=== PATIENT | male | born 1960 | race Caucasian/White ===

== ENCOUNTER 2020-01-22 08:19 | Day surgery (SDC) | payer OTHER, SELFPAY ==
[2020-01-15 10:45] VITALS: BMI 25.9
[2020-01-22 08:31] VITALS: BP 113/76; PULSE 69; RESP 16; TEMP 36; O2SAT 99
--- NOTE | 2020-01-22 08:42 | HO.ANESPROP2 ---
[facility] Past Medical History Medical History Asbestos exposure BPH (benign prostatic hyperplasia) Depression Erectile dysfunction Fatigue Gluten intolerance History of anxiety Physical exam RBBB Sleep apnea Family History Family History Father Cancer of prostate Mother No problems noted. Maternal Grandfather No problems noted. Maternal Grandmother No problems noted. Paternal Grandfather No problems noted. Paternal Grandmother Colon cancer Paternal Uncle Unknown family medical history Surgical History Surgical History H/O colonoscopy Hx of arthroscopic knee surgery Hx of right inguinal hernia repair Hx of vasectomy Social History Social History (Updated 01/15/20 @ 10:50 by Melissa Mirza) Alcohol intake: never Smoking Status: Never smoker Use of substances other than those prescribed or required for medical reasons: No Advance Directives Information Provided: No Recently lost weight without trying: No Meds Allergies Allergy/AdvReac Type Severity Reaction Status Date / Time No Known Allergies Allergy Verified 01/22/20 08:28 [No Known Allergies*] Home Medications Medication Instructions Recorded Confirmed Type cholecalciferol (vitamin D3) 50 50 mcg PO DAILY 01/07/20 01/22/20 History mcg (2,000 unit) capsule vitamin B complex 1 tab PO DAILY 01/07/20 01/22/20 History Exam Exam Date and Time: January 22, 2020 0842 Height,Weight and Vital Signs: Height 5 ft 7 in Weight 75 kg Last Vital Signs Temp 96.8 F 01/22/20 08:31 Pulse 69 01/22/20 08:31 Resp 16 01/22/20 08:31 BP 113/76 01/22/20 08:31 Pulse Ox 99 01/22/20 08:31 Airway Mallampati Class: III TM Dist: >3cm Neck ROM: Full Heart: RrR Lungs: CTA BL Assessment and Plan Assessment Anesthesia Assessment: Anesthesia Plan Discussed and Chart Reviewed Final Anesthetic Review NPO: Yes ASA Class: II Final Preanesthetic Review: Meds/Allgs Chart Reviewed and Consent Obtained/Reviewed Patient Risk: Intermediate Procedure Risk: Intermediate Anesthetic Plan Anesthetic Plan: MAC: Disposition: Standard PACU
[2020-01-22] MEDS: Lactated Ringers 1,000 ML 50 ML IVCONT (08:58)
--- NOTE | 2020-01-22 09:30 | MHC.SHP ---
Pre-Procedural Eval Section B Chief Complaint: SCREENING Details of Present Illness: Colon cancer screening, Hx of colon polyps; + colon cancer second degree relative Relevant Family History (Specify if Yes): Yes Relevant Social History: None Present Medications: see Short Stay Collaborative assessment Medical History: Significant History (CORINA-hernia, ) History of Previous Operations: No relevant previous surgery Allergies: Allergies Allergy/AdvReac Type Severity Reaction Status Date / Time No Known Allergies Allergy Verified 01/22/20 08:28 [No Known Allergies*] Review of Systems Sugical H&P ROS: Negative: Constitution, Cardiovascular, Respiratory, Gastrointestinal and Musculoskeletal Exam Surgical H&P Exam: Normal: HEENT, Normal: Heart, Normal: Lungs, Normal: Extremities, Normal: Abdomen and Normal: Skin Plan Diagnosis/Plan: Unchanged Patient has been examined and remains a candidate for the planned procedure--yes
[2020-01-22 09:51] VITALS: BP 81/50; PULSE 75; RESP 16; TEMP 36.2; O2SAT 95
--- NOTE | 2020-01-22 09:53 | PM.OP ---
Brief Operative Note Date of Service: 01/22/20 Pre-op diagnosis: Colon cancer screening hx polyps Post-op diagnosis: other (Neg exam; 1-2 + Internal hemorrhoids) Procedure: Colonoscopy Implants: NONE Surgeon: Milvia Obrien MD Anesthesia: MAC (MD Dalton) Estimated blood loss (mL): 0 Pathology: none sent Condition: stable Disposition: PACU
[2020-01-22 10:06] VITALS: BP 94/55; PULSE 66; RESP 18; O2SAT 97
[2020-01-22 10:21] VITALS: BP 93/59; PULSE 67; RESP 16; O2SAT 96
[2020-01-22 10:36] VITALS: BP 99/67; PULSE 73; RESP 18; O2SAT 97
--- NOTE | 2020-01-22 10:58 | HO.POSTANES ---
Post Anesthesia Evaluation Post Anesthesia Evaluation Vital Signs: Vital Signs Temp Pulse Resp BP Pulse Ox 01/22/20 10:36 97.2 F 73 18 99/67 97 01/22/20 10:21 67 16 93/59 L 96 01/22/20 10:06 66 18 94/55 L 97 01/22/20 09:51 97.2 F 75 16 81/50 L 95 01/22/20 08:31 96.8 F 69 16 113/76 99 Anesthesia: Monitored Mental Status: Awake Pain Control: Satisfactory Nausea/Vomiting: None Hydration: Adequate Anesthesia-Related Issues: No Anes. Related Issues
--- NOTE | 2020-01-22 11:40 | OP_ITS ---
SURGEON: Milvia Obrien MD PREOPERATIVE DIAGNOSIS: The patient is being seen for colon cancer screening (history of colonic polyps removed, [facility], ). POSTOPERATIVE DIAGNOSIS: Negative exam, 1 to 2+ internal hemorrhoids. PROCEDURE PERFORMED: Colonoscopy. ESTIMATED BLOOD LOSS: No blood loss. COMPLICATIONS: No complications. ANESTHESIA: Monitored. ANESTHESIOLOGIST: Dr. Murphy. ASSISTANTS: No records assistant. SPECIMENS: No specimens removed. SURGICAL SUPPLY ASSISTANT: Dr. Obrien. CONDITION: Postprocedure, stable. FINDINGS: Digital rectal exam revealed prostate to be slightly nodular. There was some decreased sphincter tone. Video colonoscope was introduced without difficulty. It was navigated into the rectosigmoid sigmoid up through descending, transverse, ascending colon, down into the cecal cap. Appendiceal orifice was seen. Ileocecal valve was well seen. No mucosal abnormalities were appreciated. Prep was excellent. There was some minor residual fluid, which was easily flushed and suctioned. Scope was slowly withdrawn. Good rotational views. No lesions were seen. Anorectal verge was clear. There were 1 to 2+ internal hemorrhoids in the anal canal. PLAN: Current recommendations for repeat asymptomatic screening in a patient who has had history of polyps will still be 5 years. GRAFT OR IMPLANTS: No grafts or implants. Milvia Obrien MD MEN/MODL / [id number] MTDD
== END 2020-01-22 11:13 | disposition home or self-care (01) ==
PROVIDERS: PCP Nurse Practitioner Family; Visit Provider Internal Medicine Gastroenterology
PROC: 0DJD8ZZ Inspection of Lower Intestinal Tract, Via Natural or Artificial Opening Endoscopic (ICD-10-PCS; CPT 45378; principal; 2020-01-22 09:30)
DX: Z12.11 Encounter for screening for malignant neoplasm of colon (principal); K64.1 Second degree hemorrhoids; Z86.010 Personal history of colon polyps
CPT/HCPCS: 45378

== ENCOUNTER → 2020-02-12 12:26 | Outpatient (BNVA) | payer OTHER, SELFPAY | PROVIDERS: PCP Nurse Practitioner Family; Visit Provider Physician Assistant | DX: Z76.89 Persons encountering health services in other specified circumstances (principal) ==

== ENCOUNTER 2020-07-08 07:35 | Outpatient (REF) | payer BC, SELFPAY ==
[2020-07-08 11:25] LABS: MANUAL DIFF FLAG NO
[2020-07-08 11:37] LABS: Basophils Percent Auto 0.5 % (0-2); Eosinophils Absolute Auto 0.2 X10*3/uL (0.0-0.4); Eosinophils Percent Auto 3.3 % (0-4); Hemoglobin 14.8 g/dl (14.0-18.0); Imm Gran Abs Auto 0.01 X10*3/uL (0.00-0.03); Imm Gran Pct Auto 0.2 % (0.0-0.4); Lymphocytes Absolute Auto 1.3 X10*3/uL (1.2-4.9); Lymphocytes Percent Auto 22.3 % (20-40); Mean Corpuscular HGB Conc 33.6 g/dl (31.0-36.0); Mean Corpuscular Hemoglobin 30.8 pg (27.0-33.0); Mean Corpuscular Volume 91.7 fL (80-98); Mean Platelet Volume 10.3 fL (9.4-12.4); Monocytes Absolute Auto 0.6 X10*3/uL (0.1-1.2); Monocytes Percent Auto 9.7 % (2-11); Neutrophils Absolute Auto 3.7 X10*3/uL (2.0-8.3); Platelet Count 209 X10*3/uL (160-400); Red Cell Distribution Width 11.7 % (11.0-16.0); White Blood Count 5.8 X10*3/uL (4.8-10.8)
[2020-07-08 11:49] LABS: Alanine Aminotransferase 49 U/L (0-40); Albumin Level 4.4 g/dL (3.5-5.0); Alkaline Phosphatase 54 U/L (39-117); Anion Gap 12 (12-20); Aspartate Amino Transferase 40 U/L (5-37); Bilirubin Total 0.5 mg/dL (0.0-1.0); Blood Urea Nitrogen 17 mg/dL (9-16); Calcium 8.9 mg/dL (8.4-10.2); Carbon Dioxide 28 mmol/L (22-29); Chloride 103 mmol/L (96-108); Cholesterol 142 mg/dL; Estimated Glomerular Filt Rate > 60; Glucose Fasting 116 mg/dL (60-99); HDL Cholesterol 50 mg/dL; LDL Cholesterol Calculated 80 mg/dl; Potassium 4.3 mmol/L (3.3-5.1); Sodium 139 mmol/L (135-145); Total Protein 6.9 g/dL (6.5-8.0); Triglycerides 61 mg/dL
[2020-07-08 12:02] LABS: Estimated Average Glucose 123 mg/dL; Hemoglobin A1c % 5.9 %
[2020-07-08 12:11] LABS: Prostate Specific Antigen Scr 1.29 ng/mL (<0.05-4.0); TSH reflex Free T4 1.44 uIU/mL (0.32-4.0)
[2020-07-08 12:20] LABS: Vitamin B12 907 pg/mL (200-900)
[2020-07-15 11:32] LABS: Parietal Cell Antibody <=20.0 Unit (<=20.0)
[2020-07-17 19:06] LABS: Intrinsic Factor Antibodies Negative (Negative)
== END 2020-07-08 07:36 | disposition home or self-care (01) ==
LOC: HO.HMGCLDS 07:35
PROVIDERS: PCP Nurse Practitioner Family; Visit Provider Nurse Practitioner Family
DX: Z00.00 Encounter for general adult medical examination without abnormal findings (principal); Z12.5 Encounter for screening for malignant neoplasm of prostate; E53.8 Deficiency of other specified B group vitamins; R74.8 Abnormal levels of other serum enzymes; R73.01 Impaired fasting glucose
CPT/HCPCS: 36415; 80053; 80061; 82550; 82607; 83036; 83516; 84153; 84443; 85025; 86340

== ENCOUNTER 2020-07-10 08:28 | Outpatient (REF) | payer BC, SELFPAY ==
[2020-07-10 11:38] LABS: Troponin-I High Sensitivity < 3.5 ng/L (<3.5-35.0)
[2020-07-10 11:57] LABS: HBsAGNum1 0.21 S/CO (0.00-0.99); Hepatitis B Surface Antigen Negative (Negative)
[2020-07-10 12:10] LABS: HBc Num1 0.06 S/CO (0.00-0.79); Hepatitis B Core Antibody Nonreactive (Nonreactive); ~Hepatitis B Surface Antibody NONREACTIVE (Nonreactive); ~Hepatitis C Antibody Nonreactive (Nonreactive)
[2020-07-11 08:48] LABS: Hepatitis A Antibody IgM 0.14 Index (0-0.79); ~Hepatitis A Antibody IgM Nonreactive (Nonreactive)
[2020-07-13 21:01] LABS: CK-BB None Detected (None Detected); CK-MB 5 % (<5); CK-MM 88 % (95-100); Creatine Kinase Isoenzyme Itrp MACRO CK TYPE 1; Creatine Kinase,Total,Serum 804 U/L (44-196)
== END 2020-07-10 08:29 | disposition home or self-care (01) ==
LOC: HO.HMGCLDS 08:28
PROVIDERS: PCP Nurse Practitioner Family; Visit Provider Nurse Practitioner Family
DX: R00.2 Palpitations (principal); R74.8 Abnormal levels of other serum enzymes
CPT/HCPCS: 36415; 82552; 84484; 86704; 86706; 86709; 86803; 87340

== ENCOUNTER → 2020-08-07 08:29 | Outpatient (BNVA) | payer BC, SELFPAY | PROVIDERS: PCP Nurse Practitioner Family; Visit Provider Hospitalist ==

== ENCOUNTER → 2020-09-08 08:37 | Outpatient (REF) | payer BC, SELFPAY ==
--- NOTE | ~2020-09-08 | US_ITS ---
EXAMINATION: US ABDOMEN COMPLETE CLINICAL INFORMATION: Abnormal levels of other serum enzymes. COMPARISON: Ultrasound abdomen complete dated 03/08/2018. Renal ultrasound with bladder dated 01/31/2018. TECHNIQUE: Real-time imaging of the abdominal viscera. FINDINGS: PANCREAS: Normal. ABDOMINAL AORTA: The proximal, mid, and distal segments are normal in caliber. INFERIOR VENA CAVA: Visualized portions are normal. LIVER: There is increased liver echogenicity. The liver is normal in size. The liver contour is normal. No focal hepatic lesion. There is no intrahepatic biliary duct dilatation seen. GALLBLADDER: Normal. The gallbladder is physiologically distended without evidence of stones, sludge, polyps, wall thickening or pericholecystic fluid. COMMON BILE DUCT: Normal in caliber measuring 0.51 cm in diameter. RIGHT KIDNEY: Normal. No hydronephrosis. No renal calculi or focal parenchymal lesions. The kidney measures 9.3 cm in maximum dimension. LEFT KIDNEY: Normal. No hydronephrosis. No renal calculi or focal parenchymal lesions. The kidney measures 10.1 cm in maximum dimension. SPLEEN: Normal. The spleen measures 10.3 cm in maximum dimension. FREE FLUID: None. US/US abdomen complete IMPRESSION: 1. Increased liver echogenicity likely hepatic steatosis. No focal lesion seen. Similar findings are seen on the previous ultrasound 03/08/2018 2. The rest of the abdominal ultrasound is unremarkable.
--- NOTE | ~2020-09-08 | US_ITS ---
EXAMINATION: US SCROTUM CLINICAL INFORMATION: Pain. COMPARISON: None TECHNIQUE: A sonogram of the scrotum was performed assessing shirley-scale appearance and color Doppler flow. Spectral Doppler analysis of the arterial and venous flow were performed in the testes bilaterally. FINDINGS: RIGHT: Right testicle measures 4.8 x 2.6 x 4.4 cm, volume 28.5 mL. No focal testicular parenchymal lesions are visualized. Spectral Doppler analysis of the arterial and venous flow is normal in the right testis. Right epididymal head is normal in size. There is a small right hydrocele. No right varicocele is seen. Right epididymal Doppler flow is normal. LEFT: Left testicle is smaller than the right and measures 3.7 x 2.2 x 3.6 cm, volume 14.7 mL. No focal testicular parenchymal lesions are visualized. Spectral Doppler analysis of the arterial and venous flow is normal in the left testis. Left epididymal head is normal in size. No left hydrocele or varicocele is seen. Left epididymal Doppler flow is normal. US/US scrotum IMPRESSION: Small right hydrocele.
--- NOTE | 2020-09-08 09:48 | CA_ITS ---
Acquisition Time: 2020-09-08 10:24:32 Total Exercise Time: 00:12:15 Test Indications: SOB, RBBB Medications: SEE CHART Protocol: TOMMIE Max HR: 166 BPM 102% of Pred: 162 BPM Max BP: 132/068 mmHG Max Work Load: 13.8 METS Exercise stress test with exercise 12 min 15 sec of Tommie protocol without anginal symptoms, without arrythmia, with normotensive response to exercise, without EKG changes meeting criteria for ischemia. Test reviewed with Dr Anderson. Referred By: Avinash Crowell Overread By: SOFIA COLMENARES
--- NOTE | 2020-09-08 09:48 | ECG_ITS ---
Hook-up date: 2020-09-08 11:25:00 Duration: 43:27:00 Test Indications: R00.2 - Palpitations Medications: [id number] QRS complexes 1 Ventricular ectopics which represent <1 % of total QRS comp. 41 Supraventricular ectopics which represent <1 % of total QRS comp. * Paced QRS complexs which represent % of total QRS comp. VENTRICULAR ECTOPY 1 Isolated 0 Bigeminal Cycles 0 Couplets 0 Runs 0 Beats in Runs * Beats LONGEST at * BPM at :: -- * Beats FASTEST at * BPM at :: -- SUPRAVENTRICULAR ECTOPY 34 Isolated 2 Couplets 1 Runs 3 Beats in Runs 3 Beats LONGEST at 133 BPM at 18:45:46 2020-09-08 3 Beats FASTEST at 133 BPM at 18:45:46 2020-09-08 HEART RATES 51 MIN at 14:25:26 2020-09-08 81 AVG 137 MAX at 11:25:42 2020-09-08 LONGEST RR 1.2240 secs at 14:30:20 2020-09-08 S-T LEVELS Channel 1 - 128 mm at 11:25:00 2020-09-08 - 128 mm at 11:25:00 2020-09-08 Channel 2 - 128 mm at 11:25:00 2020-09-08 - 128 mm at 11:25:00 2020-09-08 Channel 3 - 128 mm at 03:04:41 -- - 128 mm at 03:04:41 Underlying rhythm is sinus; Average ventricular rate 81/min; range 51-137/min; Rare Premature atrial complexes ; No sustained arrhythmias; Patient did not return diary Referred By: Avinash Crowell Overread By: REY LEO
== END ==
LOC: HO.SL 08:37
PROVIDERS: Absent Provider Physician Assistant Surgical; PCP Nurse Practitioner Family; Visit Provider Nurse Practitioner Family
DX: N50.819 Testicular pain, unspecified (principal); G47.33 Obstructive sleep apnea (adult) (pediatric); R00.2 Palpitations; R74.8 Abnormal levels of other serum enzymes
CPT/HCPCS: 76700; 76870; 93017; 93225; 93226; 95806

== ENCOUNTER → 2020-10-07 15:10 | Outpatient (BNVA) | payer BC, SELFPAY | PROVIDERS: PCP Nurse Practitioner Family; Visit Provider Hospitalist ==

== ENCOUNTER 2021-05-15 08:15 | Outpatient (REF) | payer BC, SELFPAY ==
[2021-05-15 11:40] LABS: Appearance Urine CLEAR; Color Urine YELLOW; Glucose Urine UA NEG (NEG); Leukocyte Esterase Urine NEG (NEG); Nitrite Urine NEG (NEG); Specific Gravity - Urine 1.015 (1.005-1.025); UACC Culture Trigger NO; Urine Blood TRACE (NEG); Urine Ketones NEG (NEG); Urine Protein NEG (NEG-TRACE)
[2021-05-15 11:47] LABS: Alanine Aminotransferase 40 U/L (0-40); Albumin Level 4.4 g/dL (3.5-5.0); Alkaline Phosphatase 53 U/L (39-117); Anion Gap 11 (12-20); Aspartate Amino Transferase 24 U/L (5-37); Bilirubin Total 0.8 mg/dL (0.0-1.0); Blood Urea Nitrogen 17 mg/dL (9-16); Calcium 9.4 mg/dL (8.4-10.2); Carbon Dioxide 29 mmol/L (22-29); Chloride 103 mmol/L (96-108); Cholesterol 174 mg/dL; Estimated Glomerular Filt Rate > 60; Glucose Fasting 102 mg/dL (60-99); HDL Cholesterol 44 mg/dL; LDL Cholesterol Calculated 112 mg/dl; Potassium 4.4 mmol/L (3.3-5.1); Sodium 139 mmol/L (135-145); Total Protein 7.1 g/dL (6.5-8.0); Triglycerides 90 mg/dL
[2021-05-15 11:53] LABS: RBC Urine 0 /HPF (0); Squamous Epithelial Cell Urine TRACE /LPF; WBC Urine 0 /HPF (0-4)
[2021-05-15 12:12] LABS: Prostate Specific Antigen Scr 0.99 ng/mL (<0.05-4.0); TSH reflex Free T4 1.66 uIU/mL (0.32-4.0)
[2021-05-15 12:19] LABS: Folate 8.6 ng/mL (> or = 4.0); Vitamin B12 906 pg/mL (200-900)
== END 2021-05-15 08:16 | disposition home or self-care (01) ==
LOC: HO.HMGCLDS 08:15
PROVIDERS: Visit Provider Nurse Practitioner Family
DX: Z00.00 Encounter for general adult medical examination without abnormal findings (principal); Z12.5 Encounter for screening for malignant neoplasm of prostate; E53.8 Deficiency of other specified B group vitamins
CPT/HCPCS: 36415; 80053; 80061; 81001; 82607; 82746; 84153; 84443

== ENCOUNTER 2021-11-16 11:52 | Outpatient (REF) | payer BC, SELFPAY ==
[2021-11-16 14:04] LABS: Appearance Urine Clear; Color Urine Yellow; Glucose Urine UA Negative (Negative); Leukocyte Esterase Urine Small (1+) (Negative); Nitrite Urine Negative (Negative); PH 7.5 (5.0-9.0); Specific Gravity - Urine <= 1.005 (1.005-1.025); UMIC TRIGGER UACC YES; Urine Blood Negative (Negative); Urine Ketones Negative (Negative); Urine Protein Negative (Neg-Trace)
[2021-11-16 14:07] LABS: MANUAL DIFF FLAG NO
[2021-11-16 14:18] LABS: Basophils Absolute Auto 0.1 X10*3/uL (0.0-0.2); Basophils Percent Auto 0.8 % (0-2); Eosinophils Absolute Auto 0.2 X10*3/uL (0.0-0.4); Eosinophils Percent Auto 3.7 % (0-4); Hematocrit 44.6 % (42.0-52.0); Hemoglobin 15.4 g/dl (14.0-18.0); Imm Gran Abs Auto 0.03 X10*3/uL (0.00-0.03); Imm Gran Pct Auto 0.5 % (0.0-0.4); Lymphocytes Absolute Auto 1.7 X10*3/uL (1.2-4.9); Lymphocytes Percent Auto 26.1 % (20-40); Mean Corpuscular HGB Conc 34.5 g/dl (31.0-36.0); Mean Corpuscular Hemoglobin 31.2 pg (27.0-33.0); Mean Corpuscular Volume 90.3 fL (80.0-98.0); Mean Platelet Volume 10.2 fL (9.4-12.4); Monocytes Absolute Auto 0.7 X10*3/uL (0.1-1.2); Monocytes Percent Auto 10.1 % (2-11); Neutrophils Absolute Auto 3.9 x10*3/uL (2.0-8.3); Neutrophils Percent Auto 58.8 % (45-73); Platelet Count 209 X10*3/uL (160-400); Red Blood Count 4.94 X10*6/uL (4.60-5.80); Red Cell Distribution Width 11.9 % (11.0-16.0); White Blood Count 6.5 X10*3/uL (4.8-10.8)
[2021-11-16 14:21] LABS: Bacteria Urine None Seen (None Seen); Hyaline Casts Urine 0-2 /LPF (0-2); RBC Urine 0-2 /HPF (0-2); Squamous Epithelial Cell Urine 0-2 /HPF (0-2); UACC Culture Trigger YES; WBC Urine 0-5 /HPF (0-5)
[2021-11-16 14:33] LABS: Alanine Aminotransferase 72 U/L (0-40); Albumin Level 4.7 g/dL (3.5-5.0); Alkaline Phosphatase 53 U/L (39-117); Anion Gap 18 (12-20); Aspartate Amino Transferase 56 U/L (5-37); Bilirubin Total 0.7 mg/dL (0.0-1.0); Blood Urea Nitrogen 17 mg/dL (9-16); Calcium 9.5 mg/dL (8.4-10.2); Carbon Dioxide 26 mmol/L (22-29); Chloride 100 mmol/L (96-108); Estimated Glomerular Filt Rate > 60; Glucose Random 109 mg/dL (60-115); Potassium 4.5 mmol/L (3.3-5.1); Sodium 139 mmol/L (135-145); Total Protein 7.5 g/dL (6.5-8.0)
== END 2021-11-16 11:53 | disposition home or self-care (01) ==
LOC: HO.HMGCLDS 11:52
PROVIDERS: Absent Provider Urology; PCP Nurse Practitioner Family; Visit Provider Nurse Practitioner Family
DX: B34.9 Viral infection, unspecified (principal)
CPT/HCPCS: 36415; 80053; 81001; 81003; 85025; 87086

== ENCOUNTER 2022-11-26 13:22 | Outpatient (REF) | payer OTHER, SELFPAY ==
--- NOTE | ~2022-11-26 | MR_ITS ---
EXAMINATION: MR BRAIN WITHOUT AND WITH CONTRAST CLINICAL INFORMATION: Ringing in ears. COMPARISON: None available. TECHNIQUE: Multiplanar, multisequence MRI of the brain was obtained using a skull base protocol without and following the administration of 7.5 mL of Gadavist intravenous contrast. FINDINGS: No focal restricted diffusion is demonstrated to suggest acute or subacute cerebral ischemia. No evidence of acute or chronic hemorrhagic products on heme-sensitive imaging. Scattered periventricular and deep white matter T2 FLAIR hyperintensities consistent with mild underlying microangiopathy. The ventricles are normal in morphology and size. No abnormal mass effect. No midline shift. Normal appearance of the pituitary gland. Normal positioning of the cerebellar tonsils. No mass of the cerebellopontine angles. Normal appearance of the cranial nerve V, VII, and VIII nerve roots. No edema or vascular loops near the nerve root entry sites. Normal appearance of the internal auditory canals without enhancing mass lesions. No abnormal enhancement along the course of the facial nerves bilaterally. Normal appearance of the labyrinthine structures without loss of T2 signal or abnormal enhancement. Normal arterial and venous vascular flow voids are present. No abnormal intracranial contrast enhancement. Normal, homogeneous marrow signal. Mild mucosal thickening of the paranasal sinuses. Mild rightward nasal septal deviation. No signal abnormalities within the mastoids. MR/MR head/brain wo/w con IMPRESSION: 1. No acute intracranial abnormalities. No abnormal intracranial enhancement. 2. Mild underlying microangiopathy. 3. No additional MRI abnormalities to explain the patient's symptoms.
[2022-12-01] MEDS: gadobutroL 7.5 ML VIAL IVPUSH (11:11)
== END 2022-11-26 13:23 | disposition home or self-care (01) ==
LOC: HO.MRI 13:22
PROVIDERS: Visit Provider Physician Assistant Medical
DX: H93.19 Tinnitus, unspecified ear (principal)
CPT/HCPCS: 70553; A9585